=== PATIENT | male | born 1935 | race Two or more races ===

== ENCOUNTER → 2018-10-28 | Outpatient (CLI) | payer MEDICARE, MEDICAID ==
[2018-10-28 12:59] LABS: BASOPHILS # (AUTO) 0.02 x10^3/uL (0-0.1); BASOPHILS % (AUTO) 0 % (0-1); EOSINOPHILS % (AUTO) 2 % (1-7); LYMPHOCYTES # (AUTO) 1.83 x10^3/uL (1-3.4); LYMPHOCYTES % (AUTO) 30 % (22-44); MD NO; MEAN CORPUSCULAR HEMOGLOBIN 31.2 pg (27.5-34.5); MEAN CORPUSCULAR HGB CONC 34.8 g/dL (33.2-36.2); MEAN CORPUSCULAR VOLUME 89.7 fL (81-97); MONOCYTES # (AUTO) 0.47 x10^3/uL (0.2-0.8); MONOCYTES % (AUTO) 8 % (2-9); NEUTROPHILS # (AUTO) 3.77 x10^3/uL (1.8-6.8); NEUTROPHILS % (AUTO) 61 % (42-75); PLATELET COUNT 184 x10^3/uL (130-400); RED BLOOD COUNT 5.12 x10^6/uL (4.38-5.82); RED CELL DISTRIBUTION WIDTH 12.9 % (9.4-14.8)
[2018-10-28 13:12] LABS: ALBUMIN 4.2 g/dL (3.4-5.0); CHLORIDE 109 mmol/L (98-107)
[2018-10-28 13:24] LABS: ALANINE AMINOTRANSFERASE 28 U/L (12-78); ALKALINE PHOSPHATASE 120 U/L (45-117); ANION GAP 6 mmol/L (5-15); BILIRUBIN,TOTAL 0.6 mg/dL (0.2-1.0); CALCIUM 9.5 mg/dL (8.5-10.1); CHOL/HDL RATIO 2.9; CHOLESTEROL, TOTAL 129 mg/dL (140-239); CREATININE 0.91 mg/dL (0.7-1.3); HDL CHOL % 34 % (26-37); HDL CHOLESTEROL (DIRECT) 44 mg/dL (40-60); LDL CHOLESTEROL,CALCULATED 61 mg/dL (54-169); LDL/HDL RATIO 1.4 (0.5-3.0); T4 (THYROXINE) 11.6 mcg/dL (4.5-12.1); TRIGLYCERIDES 119 mg/dL (50-200); VLDL CHOLESTEROL 24 mg/dL (0-25)
== END | disposition home or self-care (01) ==
LOC: CFH 11:36
PROVIDERS: ATTEND Internal Medicine Cardiovascular Disease
DX: E78.00 Pure hypercholesterolemia, unspecified (principal); I10 Essential (primary) hypertension; I48.0 Paroxysmal atrial fibrillation; Z79.01 Long term (current) use of anticoagulants
CPT/HCPCS: 36415; 80053; 80061; 84436; 84481; 85025

== ENCOUNTER 2018-11-07 09:59 | Inpatient (IN) | payer MEDICARE, MEDICAID ==
[~2018-11-07] VITALS: Ht 154.9 cm; Wt 64.6 kg
--- NOTE | 2018-11-07 10:13 | NUR ---
THIS IS A 83 YEAR OLD MALE WHO WAS TOLD BY DR. ROSAS'S OFFICE TO COME TO ED. REPORT FROM DR. ROSAS'S OFFICE, PT IS HAVING 9 SECOND PAUSES. PT PLACED ON HEAD MILLER, HR 66, RIGHT BBB, CYCLE VS, AND CONTINOUS SP02
[2018-11-07] MEDS ORDERED: PRAV40TA2 PO (10:25)
[2018-11-07] MEDS ORDERED: APIX5TAB PO (10:25)
[2018-11-07] MEDS ORDERED: LISI1TAB3 PO (10:28)
--- NOTE | 2018-11-07 10:45 | NUR ---
PACING PADS ON PER ORDERS.
[2018-11-07 10:57] LABS: BASOPHILS # (AUTO) 0.03 x10^3/uL (0-0.1); BASOPHILS % (AUTO) 1 % (0-1); EOSINOPHILS # (AUTO) 0.08 x10^3/uL (0-0.4); EOSINOPHILS % (AUTO) 1 % (1-7); LYMPHOCYTES # (AUTO) 1.82 x10^3/uL (1-3.4); LYMPHOCYTES % (AUTO) 31 % (22-44); MD NO; MEAN CORPUSCULAR HEMOGLOBIN 30.4 pg (27.5-34.5); MEAN CORPUSCULAR HGB CONC 33.9 g/dL (33.2-36.2); MEAN CORPUSCULAR VOLUME 89.5 fL (81-97); MEAN PLATELET VOLUME 7.2 fL (7.4-10.4); MONOCYTES # (AUTO) 0.42 x10^3/uL (0.2-0.8); MONOCYTES % (AUTO) 7 % (2-9); NEUTROPHILS # (AUTO) 3.57 x10^3/uL (1.8-6.8); NEUTROPHILS % (AUTO) 60 % (42-75); PLATELET COUNT 187 x10^3/uL (130-400); RED BLOOD COUNT 5.28 x10^6/uL (4.38-5.82); RED CELL DISTRIBUTION WIDTH 13.1 % (9.4-14.8)
[2018-11-07 11:11] LABS: INTERNATIONAL NORMALIZED RATIO 1.06 (0.93-1.1); PROTHROMBIN TIME 11.1 Seconds (9.6-11.5)
[2018-11-07 11:25] LABS: ALANINE AMINOTRANSFERASE 29 U/L (12-78); ALBUMIN 3.8 g/dL (3.4-5.0); ANION GAP 6 mmol/L (5-15); CALCIUM 8.8 mg/dL (8.5-10.1); CHLORIDE 109 mmol/L (98-107); CREATININE 0.89 mg/dL (0.7-1.3)
[2018-11-07 11:27] LABS: ALKALINE PHOSPHATASE 117 U/L (45-117); BILIRUBIN,TOTAL 0.7 mg/dL (0.2-1.0); TOTAL PROTEIN 7.5 g/dL (6.4-8.2)
[2018-11-07] MEDS ORDERED: GUAIFENESIN/DM 200-20MG, 10ML UDC PO PRN (12:00)
[2018-11-07] MEDS ORDERED: hydrALAzine 20 MG/ML, 1ML IVPush PRN (12:00)
[2018-11-07] MEDS ORDERED: LIDODERM 5% PATCH TD PRN (12:00)
[2018-11-07] MEDS ORDERED: DOCUSATE 100 MG CAPSULE PO PRN (12:00)
[2018-11-07] MEDS ORDERED: POLYETHYLENE GLYCOL 17 GM PACKET PO PRN (12:00)
--- NOTE | 2018-11-07 12:48 | NUR ---
PT RESTING, VERBALIZED UNDERSTANDING TO BE ADMITTED, FAMILY AT BS
[2018-11-07 12:54] LABS: FREE T4 (FREE THYROXINE) 1.2 ng/dL (0.76-1.46); THYROID STIMULATING HORMONE 0.643 mIU/L (0.358-3.740)
[2018-11-07 13:21] LABS: HEMOGLOBIN A1C 5.7 % (4.2-6.3)
--- NOTE | 2018-11-07 13:30 | NUR ---
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 Shelby to call back with updates.
--- NOTE | 2018-11-07 13:55 | NUR ---
Report to RUTH Ryan.
[2018-11-07 14:15] VITALS: BP 129/85
[2018-11-07] MEDS ORDERED: CEFAZOLIN PMX 1GM/50ML 50 ML IVPB ONE (17:00)
[2018-11-07 20:33] VITALS: BP 127/65
[2018-11-07] MEDS: PRAVASTATIN 40 MG TABLET PO SCH (22:12)
[2018-11-07 23:54] LABS: MICROSCOPIC NOT IND
[2018-11-07 23:57] LABS: CULTURE INDICATED? NO
[2018-11-08 00:59] VITALS: BP 123/76
[2018-11-08] MEDS: SODIUM CHLORIDE 0.9% 1,000 ML IV SCH ×3 (04:45→19:42)
[2018-11-08 05:11] LABS: ANION GAP 6 mmol/L (5-15); CALCIUM 8.8 mg/dL (8.5-10.1); CHLORIDE 107 mmol/L (98-107); CHOLESTEROL, TOTAL 133 mg/dL (140-239); CREATININE 0.85 mg/dL (0.7-1.3); TRIGLYCERIDES 155 mg/dL (50-200); VLDL CHOLESTEROL 31 mg/dL (0-25)
[2018-11-08 05:12] LABS: BASOPHILS # (AUTO) 0.03 x10^3/uL (0-0.1); BASOPHILS % (AUTO) 0 % (0-1); EOSINOPHILS # (AUTO) 0.15 x10^3/uL (0-0.4); EOSINOPHILS % (AUTO) 2 % (1-7); LYMPHOCYTES # (AUTO) 2.28 x10^3/uL (1-3.4); LYMPHOCYTES % (AUTO) 31 % (22-44); MD NO; MEAN CORPUSCULAR HEMOGLOBIN 31.2 pg (27.5-34.5); MEAN PLATELET VOLUME 7.4 fL (7.4-10.4); MONOCYTES # (AUTO) 0.56 x10^3/uL (0.2-0.8); MONOCYTES % (AUTO) 8 % (2-9); NEUTROPHILS # (AUTO) 4.24 x10^3/uL (1.8-6.8); NEUTROPHILS % (AUTO) 58 % (42-75); PLATELET COUNT 188 x10^3/uL (130-400); RED CELL DISTRIBUTION WIDTH 13.3 % (9.4-14.8)
[2018-11-08 05:13] LABS: CHOL/HDL RATIO 3.5; HDL CHOL % 29 % (26-37); HDL CHOLESTEROL (DIRECT) 38 mg/dL (40-60); LDL CHOLESTEROL,CALCULATED 64 mg/dL (54-169); LDL/HDL RATIO 1.7 (0.5-3.0)
[2018-11-08] MEDS ORDERED: CEFAZOLIN 1,000 MG ONE (07:11)
[2018-11-08] MEDS ORDERED: MIDAZOLAM 1 MG/ML, 2ML ONE (07:12)
[2018-11-08] MEDS ORDERED: LIDOCAINE 1%, 20ML ONE (07:12)
[2018-11-08] MEDS ORDERED: FENTANYL PF 100 MCG/2ML ONE (07:12)
[2018-11-08] MEDS: LISINOPRIL 10 MG TABLET PO SCH (07:46)
[2018-11-08] MEDS: HYDROCHLOROTHIAZIDE 12.5 MG CAPSULE PO SCH (07:46)
[2018-11-08 07:47] VITALS: BP 124/67
[2018-11-08] MEDS ORDERED: ZOLPIDEM 5MG TABLET PO PRN (11:00)
[2018-11-08] MEDS ORDERED: BISACODYL 10 MG SUPP PR PRN (11:30)
[2018-11-08] MEDS ORDERED: ONDANSETRON 2MG/ML, 2ML IV PRN (11:30)
[2018-11-08] MEDS ORDERED: ACETAMINOPHEN 325 MG TABLET PO PRN (11:30)
[2018-11-08] MEDS ORDERED: HYDROcodone/APAP 5/325 TABLET PO PRN (11:30)
[2018-11-08] MEDS ORDERED: BISACODYL 5 MG EC TABLET PO PRN (11:30)
[2018-11-08 12:54] VITALS: BP 134/68
[2018-11-08] MEDS ORDERED: METOPROLOL TARTRATE 25 MG TABLET ONE (15:50)
[2018-11-08] MEDS: METOPROLOL TARTRATE 25 MG TABLET PO SCH (15:54)
[2018-11-08] MEDS ORDERED: CEFAZOLIN PMX 1GM/50ML 50 ML IVPB ONE (17:00)
[2018-11-08 20:30] VITALS: BP 123/66
[2018-11-08] MEDS: SODIUM CHLORIDE FLUSH 10ML SYR IVF SCH (20:32)
[2018-11-08] MEDS: PRAVASTATIN 40 MG TABLET PO SCH (20:32)
[2018-11-09 02:59] VITALS: BP 115/66
[2018-11-09] MEDS: ACETAMINOPHEN 325 MG TABLET PO PRN ×2 (03:07→08:27)
[2018-11-09] MEDS: METOPROLOL TARTRATE 25 MG TABLET PO SCH (05:43)
[2018-11-09 05:45] VITALS: BP 112/66
[2018-11-09 07:12] VITALS: BP 112/64
[2018-11-09] MEDS: HYDROCHLOROTHIAZIDE 12.5 MG CAPSULE PO SCH (08:20)
[2018-11-09] MEDS: SODIUM CHLORIDE FLUSH 10ML SYR IVF SCH (08:21)
[2018-11-09] MEDS: LISINOPRIL 10 MG TABLET PO SCH (08:21)
[2018-11-09] MEDS ORDERED: ACET325T14 PO (12:23)
== END 2018-11-09 13:50 | disposition home or self-care (01) | DRG 242 ==
LOC: ED 10:35 → EDIP 12:00 → 5SO 14:10 → DCLOUNGE 11-09 13:35
PROVIDERS: ADMIT Internal Medicine; ATTEND Internal Medicine
PROC: 0JH606Z Insertion of Pacemaker, Dual Chamber into Chest Subcutaneous Tissue and Fascia, Open Approach (ICD-10-PCS; principal; 2018-11-08)
PROC: 02H63JZ Insertion of Pacemaker Lead into Right Atrium, Percutaneous Approach (ICD-10-PCS; 2018-11-08)
PROC: 02HK3JZ Insertion of Pacemaker Lead into Right Ventricle, Percutaneous Approach (ICD-10-PCS; 2018-11-08)
DX: I49.5 Sick sinus syndrome (principal); I50.33 Acute on chronic diastolic (congestive) heart failure; D68.59 Other primary thrombophilia; I48.0 Paroxysmal atrial fibrillation; E78.00 Pure hypercholesterolemia, unspecified; I10 Essential (primary) hypertension; E78.5 Hyperlipidemia, unspecified; J45.909 Unspecified asthma, uncomplicated; I35.8 Other nonrheumatic aortic valve disorders; Z87.891 Personal history of nicotine dependence; Z79.01 Long term (current) use of anticoagulants; Z95.0 Presence of cardiac pacemaker
CPT/HCPCS: 33208; 36415; 71045; 80048; 80053; 80061; 81003; 83036; 84439; 84443; 85025; 85610; 85730; 93005; 93306; 99156; 99157; C1779; C1785; C1892; G0378; J0690; J2250; J3010; J7030

== ENCOUNTER → 2019-01-14 | Outpatient (CLI) | payer MEDICARE, MEDICAID ==
[~2019-01-14] MED LIST: ACET325T14 PO; APIX5TAB PO; LISI1TAB3 PO; PRAV40TA2 PO; REGADENOSON 0.4 MG/5 ML SYRINGE ONE
== END | disposition home or self-care (01) ==
LOC: CFH 11:18
PROVIDERS: ATTEND Internal Medicine Cardiovascular Disease
DX: I08.3 Combined rheumatic disorders of mitral, aortic and tricuspid valves (principal); I10 Essential (primary) hypertension; I48.0 Paroxysmal atrial fibrillation
CPT/HCPCS: 78452; 93017; 93306; A9502; J2785